=== PATIENT | male | born 1970 | race Hispanic/Latino ===

== ENCOUNTER → 2017-11-01 | Day surgery (SDC) | payer OTHER ==
[~2017-11-01] MED LIST: CEFAZOLIN SOD 1 GM VIAL ONE; DEXAMETHASONE SOD PHOS INJ 4 MG/ML VIAL ONE; FENTANYL CITRATE/PF 100MCG/2 ML INJ ONE; LIDOCAINE HCL 2% LOCAL INJ 5 ML SDV VIAL INJ ONE; MIDAZOLAM HCL 2 MG/2 ML VIAL ONE; ONDANSETRON HCL INJ 2 MG/ML VIAL ONE; PROPOFOL IV EMULSION 10 MG/ML 20 ML VIAL ONE; SEVOFLURANE INHAL SOLN 250 ML PEN BTL ONE
--- NOTE | 2017-11-01 14:06 | Operative Report ---
DATE OF PROCEDURE: November 01, 2017 [employer]: John Wright PA-C The patient was brought to the operating room for induction of anesthesia. Throughout this case, my PA's assistance was necessary for retraction of soft tissue and positioning of the extremity. This allows for efficient and technically successful execution of the operation and is considered medically necessary. PREOPERATIVE DIAGNOSIS: Right carpal tunnel syndrome. POSTOPERATIVE DIAGNOSIS: Right carpal tunnel syndrome. PROCEDURE: Right endoscopic carpal tunnel release. INDICATIONS: The patient is a 47-year-old gentleman who has clinic signs that are consistent with a right carpal tunnel syndrome. He has failed conservative management and would like to proceed with definitive intervention. The risks and benefits were explained to the patient. He states he understands and wishes to proceed. PROCEDURE: The patient was brought to the operating room. He was placed under general anesthetic. Prophylactic antibiotics were given in the holding area. The upper extremity was prepped and draped in a sterile manner. A well-padded tourniquet was placed on the upper arm and inflated to 250 mmHg. An operative time out was performed. A 1-cm incision was made over the flexion crease of the wrist. The palmaris longus was retracted to the radial side of the wound. The flexor retinaculum was elevated and incised with a pair of sharp tenotomy scissors. An elevator was used to tease the tenosynovium off the undersurface of the transverse carpal ligament. Dilators were placed, and the hook of the hamate was palpated. The [employer] endoscope was then placed into the carpal tunnel. The undersurface of the ligament was cleanly visualized without evidence of soft-tissue interposition. The knife was deployed, and the ligament was cut from distal to proximal. Full-thickness cut was noted. The proximal retinaculum was then incised under direct visualization using a pair of blunt Metzenbaum scissors. The wound was irrigated and closed with 2 interrupted 4-0 nylon stitches. A sterile bandage was applied, and the patient was extubated. The patient was transferred to the recovery room in stable condition. Blood loss was less than 5 mL, and at the end of the procedure, needle and sponge counts were correct. Job#: [id number]
== END | disposition home or self-care (01) ==
LOC: OR 06:58
PROVIDERS: ATTEND Specialist
DX: G56.01 Carpal tunnel syndrome, right upper limb (principal); S46.811A Strain of other muscles, fascia and tendons at shoulder and upper arm level, right arm, initial encounter; R00.1 Bradycardia, unspecified; X58.XXXA Exposure to other specified factors, initial encounter; Z01.810 Encounter for preprocedural cardiovascular examination
CPT/HCPCS: 29848; 93005; J0690; J1100; J2001; J2250; J2405